=== PATIENT | male | born 1940 | race Caucasian/White ===

== ENCOUNTER → 2018-01-19 | Outpatient (CLI) | payer OTHER ==
[~2018-01-19] MED LIST: UROXATRAL
== END ==
LOC: HYPER 01-17 11:34
DX: S80.11XA Contusion of right lower leg, initial encounter (principal); B35.1 Tinea unguium; L98.9 Disorder of the skin and subcutaneous tissue, unspecified; I89.0 Lymphedema, not elsewhere classified; M19.90 Unspecified osteoarthritis, unspecified site; X58.XXXA Exposure to other specified factors, initial encounter; Y93.89 Activity, other specified; Y92.89 Other specified places as the place of occurrence of the external cause; Y99.8 Other external cause status